=== PATIENT | male | born 1985 | race Two or more races ===

== ENCOUNTER 2019-04-16 09:57 | Emergency (ER) | payer MEDICAID ==
[~2019-04-16] VITALS: Ht 177.8 cm; Wt 101.2 kg
[2019-04-16 10:14] VITALS: Ht 177.8 cm; Wt 101.2 kg
[2019-04-16 12:22] VITALS: BP 122/74
== END 2019-04-16 12:22 | disposition home or self-care (01) ==
LOC: ED 09:57
DX: K64.9 Unspecified hemorrhoids (principal)